=== PATIENT | female | born 1985 | race Caucasian/White ===

== ENCOUNTER 2024-01-25 10:30 | Outpatient (RCR) | payer BC, SELFPAY ==
[2024-01-25] VITALS (11 sets, daily range): BP systolic 125–144; BP diastolic 57–92; PULSE 90–115; RESP 14–18; TEMP 35.8–37.1; O2SAT 98–100
--- NOTE | 2024-01-25 15:50 | ONC.NURNOTE ---
Pt transferred to [facility] for 2nd unit of packed red blood cells. Pt tolerated 1st unit of blood without difficulty.
--- NOTE | 2024-01-25 18:17 | PC.NURSE ---
Discharge: Patient tolerated two units of blood well. Reported a little bit of headache at 30 min hazel after transfusion, patient also mentioned she had been experiencing headaches for the past few days.. IV removed, catheter intact. Patient left the floor by foot to home at 1815.
== END 2024-01-25 18:15 | disposition home or self-care (01) ==
LOC: BLOODTX 10:30
PROVIDERS: PCP Family Medicine; Visit Provider Family Medicine
DX: D50.0 Iron deficiency anemia secondary to blood loss (chronic) (principal); N92.0 Excessive and frequent menstruation with regular cycle
CPT/HCPCS: 36415; 36430; 80048; 80061; 82607; 82728; 83540; 86850; 86900; 86901; 86922; P9016

== ENCOUNTER 2024-02-12 10:37 | Outpatient (CLI) | payer BC, SELFPAY ==
--- OUTSIDE RECORDS SUMMARY | 2024-02-12 10:41 | XMS_ITS | Clinical Summary ---
Author Name Unknown Organization [employer] [facility] Address [place], [place] [address] Care Team Providers Care Php Lamp Developer Name Role Phone Clinic, No Pcp Or Primary Care Provider Unavaila ble Allergies No known active allergies Medications No known medications Active Problems No known active problems Encounters Date Type Department Care Team Description 01/25/[address] [facility] [phone] Jacob Lisa MD from Last 3 Months Social History Tobacco Use Types Packs/Day Years Used Date Smoking Tobacco: Never Smokeless Tobacco: Never Alcohol Use Standard Drinks/Week Comments No 0 (1 standard drink = 0.6 oz pur e alcohol) Sex and Gender Information Value Date Recorded Sex Assigned at Not on file Gender Identity Not on file Sexual Orientation Not on file Obstetrics History Last Filed Vital Signs Vital Sign Reading Time Taken Comments Blood Pressure 125/86 05/19/2015 11:01 AM CDT Pulse 105 05/19/2015 11:01 AM CDT Temperature - - Respiratory Rate - - Oxygen Saturation - - Inhaled Oxygen Concentration - - Weight 114.8 kg (253 lb) 05/19/2015 11:01 AM CDT Height 170.2 cm (5' 7.01) 05/19/2015 11:01 AM C DT Body Mass Index 39.62 05/19/2015 11:01 AM CDT Plan of Treatment Health Maintenance Due Date Last Done Comments Tdap 1996 Depression screening for age 12+ 1997 HIV for age 15-65 2000 BMI (ht and wt on same day) for age 18+ 2003 Hepatitis C screening for age 18-79 2003 Tetanus booster 2005 COVID-19 vaccine series (2022-24 season) 2023 Influenza for age 9-49 06/08/2024 Pap test for age 21-65 01/24/2027 , 01/25/2024, 11/29/2016, Additional history exists Pneumococcal series for age 6-64 Aged Out No longer eligible based on patient's age to complete this topic Procedures Procedure Name Priority Date/Time Associated Diagnosis Comments LAB TRACKING EVENT Routine 01/25/2024 9: 30 AM CDT COMMUNICATION SPECIALIST THIN PREP PAP SCREEN IMAGED Routine 01/25/2024 9:30 AM CDT HPV THIN PREP Routine 01/25/2024 9:30 AM CDT from Last 3 Months Results * LAB TRACKING EVENT (01/25/2024 9:30 AM CDT) Other (Other) Client Collect / Unknown 01/25/2024 9:30 AM CDT 01/25/2024 3:56 PM CDT Jacob Lisa MD LAB BILL ONLY [facility] LAB[facility] [address] [place] [address], * (ABNORMAL) COMMUNICATION SPECIALIST THIN PREP PAP SCREEN IMAGED (01/25/2024 9:30 AM CDT) Case Report Gynecologic Cytology Report ? Case: [id number] ? Authorizing Provider: ??Jacob Lisa MD ??Collected: ? 01/25/2024 0930 ? Ordering Location: ? [facility] ?Received: ?01/28/2024 0904 ? First Screen: ?Mehnaz Riojas ? Pathologist: ? Sharita Tatum ? MD Belle ? Specimen: ?COMMUNICATION SPECIALIST ThinPrep Vial Screening, Cervical/Vagina l ? 02/11/2024 11:57 AM T [facility] [employer] [facility]- ENTRAL LABORATORY INTERPRETATION/ RESULT ATYPICAL SQUAMOUS CELLS OF UNDETERMINED SIGNIFICANCE (ASCUS)(A) (none) 02/11/2024 11:57 AM [facility] [employer] [facility] ENTRAL LABORATORY IMEN ADEQUACY Satisfactory for evaluation Endocervical component present 02/11/2024 11:57 AM CDT [facility] [employer] LABORATORY-C ENTRAL LABORATORY HPV REQUEST HPV and PAP 02/11/2024 11:57 AM CDT [facility] [employer] LABORATORY-C ENTRAL LABORATORY Last Pap Date 11/29/2016 02/11/2024 11:57 AM CDT [facility] [employer] LABORATORY-C ENTRAL LABORATORY Last Pap Result NIL 11:57 AM CDT [facility] [employer] LABORATORY- ENTRAL LABORATORY Menstrual Status Regular Periods 02/11/2024 11:57 AM CDT [facility] ENTRAK LABORATORY [place] Bx Done Today No 02/11/2024 11:57 AM CDT [facility] Additional Information 02/11/2024 11:57 AM CDT [facility]TRAK LABORAT[facility] Comment: Interpreted at [facility] [place] [facility] - [address] [facility] [address], [place] [address] Automated Review Successful 02/11/2024 11:57 AM CDT [facility] Comment:Specimen processed s uccessfully by automated engine builder device, ThinPrep Imaging System, [employer] ANCILLARY TESTING COMMUNICATION SPECIALIST HPV Ordered, Please see separate report 02/11/2024 11:57 AM CDT [facility] Note The pap test is a screening technique, not a diagnostic procedure. It is used primarily to screen for squamous cancers and precursor lesions. Published studies have shown that it is subject to both false negative and false positive results. The pap test should not be used as the sole means to diagnose or exclude pre-malignant and malignant lesions. 02/11/2024 11:57 AM CDT [facility] Other (Cervical/Vagina l) 01/25/2024 9:30 AM CDT 01/28/2024 9:04 AM CDT Jacob Lisa MD PATHOLOGY/[facility]O [facility] [address] [place] [address], * HPV HIGH RISK (01/25/2024 9:30 AM CDT) TYPE 16 Negative Negative 01/29/2024 4:31 PM CDT [facility] TRAL LABORATORY TYPE 18 Negative Negative 01/29/2024 4:31 PM CDT [facility] TRAL LABORATORY OTHER HIGH RISK TYPES Negative Negative 01/29/2024 4:31 PM CDT [facility] TRAL LABORATORY Other (Cervical/Vagina l) 01/25/2024 9:30 AM CDT 01/28/2024 9:04 AM CDT Narrative [facility] - 01/29/2024 4:31 PM CDT HPV types 16, 18, 31, 33, 35, 39, 45, 51, 52, 56, 58, 59, 66 and 68 DNA were undetectable or below the pre-set threshold. Methodology: [employer] Marti 4800 HPV Test Jacob Lisa MD MICROBIOLOGY [facility] [address] [place] [address], from Last 3 Months Care Teams Php Lamp Developer Relationship Specialty Start Date End Date Clinic, No Pcp Or . PCP - General 05/19/15
== END 2024-02-12 10:38 | disposition home or self-care (01) ==
LOC: NFLDREF 10:38
PROVIDERS: PCP Family Medicine; Visit Provider Physician Assistant
DX: N92.0 Excessive and frequent menstruation with regular cycle (principal); Z13.29 Encounter for screening for other suspected endocrine disorder
CPT/HCPCS: 84443

== ENCOUNTER 2024-02-20 13:41 | Outpatient (CLI) | payer BC, SELFPAY ==
--- OUTSIDE RECORDS SUMMARY | 2024-02-20 13:43 | XMS_ITS | Clinical Summary ---
Author Name Unknown Organization [employer] [facility] Address [place], [place] [address] Care Team Providers Care End Finder Forming Department Name Role Phone Clinic, No Pcp Or Primary Care Provider Unavaila ble Allergies No known active allergies Medications No known medications Active Problems No known active problems Encounters Date Type Department Care Team Description 02/13/2024 Lab Requisition [facility] [phone] Corry Sanon PA-C 01/25/2024 Lab Requisition [facility] [phone] Jacob Lisa MD from Last 3 Months [...] 2003 Tetanus booster 2005 COVID-19 vaccine series ( season) 2023 Influenza for age 9-49 06/08/2024 Pap test for age 21-65 01/24/2027 4, 01/25/2024, 11/29/2016, Additional history exists Pneumococcal series for age 6-64 Aged Out No longer eligible based on patient's age to complete this topic Procedures Procedure Name Priority Date/Time Associated Diagnosis Comments LAB TRACKING EVENT Routine 02/12/2024 11 :00 AM CDT PATH TISSUE EXAM Routine 02/12/2024 11:0 0 AM CDT LAB TRACKING EVENT Routine 01/25/2024 9: 30 AM CDT MERCHANDISE FLOW ASSOCIATE THIN PREP PAP SCREEN IMAGED Routine 01/25/2024 9:30 AM CDT HPV THIN PREP Routine 01/25/2024 9:30 AM CDT from Last 3 Months Results * LAB TRACKING EVENT (02/12/2024 11:00 AM CDT) Only the most recent of2 resultswithin the time period is included. Other (Other) Client Collect / Unknown 02/12/2024 11:00 AM CDT 02/13/2024 3:43 PM CDT Corry Sanon PA-C LAB BILL ONLY [facility]-CENTRAL LABORATORY [address] [place] [address], * PATH TISSUE EXAM (02/12/2024 11:00 AM CDT) Case Report Pathology Report ?Case: [id number] ? Authorizing Provider: ??Corry Sanon PA-C ?Collected: ? 02/12/2024 1100 ? Ordering Location: ? [facility] ?Received: ?02/13/2024 1823 ? Pathologist: ? Jacob De Jesus MD ? Specimen: ?Endometrial Biopsy ? 02/18/2024 1:42 PM CDT [facility]- ENTRAL LABORATORY Final Diagnosis A) ENDOMETRIUM, BIOPSY: 1. Focal complex hyperplasia without atypia involving possible polyp, see comment 2. Background disordered proliferative endometrium 3. Negative for atypia and malignancy 02/18/2024 1:42 PM CDT [facility] ENTRAL LABORAT[facility] Comment A) The specimen shows a focus of non-atypical complex hyperplasia in a fragment of suspected endometrial polyp. No hyperplasia or atypia is present in the apparent background endometrium. The significance of such a finding is unclear. Ensuring complete removal of the polyp (which may require follow-up endometrial curettage, as clinically indicated) is advised. Case seen in consultation with Dr. Becerra. 02/18/2024 1:42 PM CDT [facility] LAB[facility] Clinical Information Menorrhagia 02/18/2024 1:42 PM CDT [employer] [facility] ENTRAL LABORATORY Gross Description A) Received in formalin, labeled with the patient's name and endometrial, is a 3.5 x 3.0 x 0.2 cm aggregate of pink-pinto mucosa admixed with clotted blood and mucous. The specimen is entirely submitted in 1 cassette. TMO 02/13/2024 02/18/2024 1:42 PM CDT [facility]- ENTRPA LABORATORY Microscopic Description The final diagnosis is based on microscopic examination of appropriate sections of all specimens. 02/18/2024 1:42 PM CDT [facility] ENTRAL LAB[facility]ATORY Additional Information Interpreted at [facility] Laboratory - [address] [place] [id number] 02/18/2024 1:42 PM CDT [facility] Other (Endometrial Biopsy) 02/12/2024 11:00 AM CDT 02/13/2024 6:23 PM CDT Corry Sanon PA-C PATHOLOGY/CYTOLOGY [facility] LAB[facility] [address] [place] [address], * (ABNORMAL) MERCHANDISE FLOW ASSOCIATE THIN PREP PAP SCREEN IMAGED (01/25/2024 9:30 AM CDT) Case Report Gynecologic Cytology Report ? Case: [id number] ? Authorizing Provider: ??Jacob Lisa MD ??Collected: ? 01/25/2024 0930 ? Ordering Location: ? [facility] ?Received: ?01/28/2024 0904 ? First Screen: ?Mehnaz Riojas ? Pathologist: ? Sharita Tatum ? MD Belle ? Specimen: ?MERCHANDISE FLOW ASSOCIATE ThinPrep Vial Screening, Cervical/Vagina l ? 02/11/2024 11:57 AM CDT [facility] [employer] [facility] ENTRAL LABORATORY INTERPRETATION/ RESULT ATYPICAL SQUAMOUS CELLS OF UNDETERMINED SIGNIFICANCE (ASCUS)(A) (none) 02/11/2024 11:57 AM CDT [facility] [employer] [facility] ENTRAL LABORATORY IMEN ADEQUACY Satisfactory for evaluation Endocervical component present 02/11/2024 11:57 AM CDT [facility] [employer] LABORATORY- ENTRAL LABORATORY HPV REQUEST HPV and PAP 02/11/2024 11:57 AM CDT [facility] LABORAT[facility]-C ENTRAL LABORATORY Last Pap Date 11/29/2016 02/11/2024 11:57 AM CDT [facility] LABOR[facility]-C ENTRAL LABORATORY Last Pap Result NIL 11:57 AM CDT [facility] [employer] [facility] ENTRAL LABORATORY Menstrual Status Regular Periods 02/11/2024 11:57 AM CDT [facility] [employer] [facility] ENTRAL LABORATORY [place] Bx Done Today No 02/11/2024 11:57 AM CDT [facility] ENTRAL LABORATORY Additional Information 02/11/2024 11:57 AM CDT [facility] Comment: Interpreted at [facility] Laboratory - [address] [facility] [address], [place] [address] Automated Review Successful 02/11/2024 11:57 AM CDT [facility] Comment:Specimen processed s uccessfully by automated s3b multi sensor operator device, ThinPrep Imaging System, [employer] ANCILLARY TESTING MERCHANDISE FLOW ASSOCIATE HPV Ordered, Please see separate report 02/11/2024 11:57 AM CDT [facility] Note The pap test is a [...] and malignant lesions. 02/11/2024 11:57 AM CDT [facility] Other (Cervical/Vagina l) 01/25/2024 9:30 AM CDT 01/28/2024 9:04 AM CDT Jacob Lisa MD PATHOLOGY/CYTOLO [facility] [address] [place] [address], * HPV HIGH RISK (01/25/2024 9:30 AM CDT) TYPE 16 Negative Negative 01/29/2024 4:31 PM CDT [facility] TRAL LABORATORY TYPE 18 Negative Negative 01/29/2024 4:31 PM CDT [facility] TRAL LABORATORY OTHER HIGH RISK TYPES Negative Negative 01/29/2024 4:31 PM CDT [facility] TRAL LABORATORY Other (Cervical/Vagina l) 01/25/2024 9:30 AM CDT 01/28/2024 9:04 AM CDT Narrative [facility] LABOR[facility]ORY - 01/29/2024 4:31 PM CDT HPV types 16, 18, 31, 33, 35, 39, 45, 51, 52, 56, 58, 59, 66 and 68 DNA were undetectable or below the pre-set threshold. Methodology: [employer] 4800 HPV Test Jacob Lisa MD MICROBIOLOGY [facility] LABORATORY-CENTRAL LABORATORY [address] [place] [address], from Last 3 Months Care Teams End Finder Forming Department Relationship Specialty Start Date End Date Clinic, No Pcp Or . PCP - General 05/19/15
--- NOTE | 2024-02-20 14:00 | US_ITS ---
Patient: JOSE BARRETT Facility:?[facility] Patient ID:?[id number] Site Patient ID:?[id number]. Site :?[id number] Study:?US-Pelvis -02/20/2024 2:35:10 PM Ordering Physician:Rashid January Final Report: INDICATION: excessive and frequent menstruation with regular menses COMPARISON: none TECHNIQUE: 2D inman scale and color Doppler images were acquired of the pelvis using a transabdominal and transvaginal approach. FINDINGS: Sonographic images demonstrate a normal size and smooth outer contour of the uterus. Uterus measures 10.3 cm in length by 6.6 cm in AP diameter by 6.9 cm in transverse dimension. The myometrium has a heterogeneous echotexture. The endometrial lining measures 6 mm in composite thickness. IUD is present within the lower uterine segment. Cervical nabothian cysts are present. The right ovary measures 2.3 x 2.4 x 2.3 cm in size and the left ovary measures 3.9 x 2.6 x 2.7 cm. The ovaries demonstrate normal arterial and venous blood flow on color Doppler analysis. There are no suspicious fluid collections within the cul-de-sac. Simple cyst left ovary measures 3.6 x 2.1 x 2.3 cm. IMPRESSION: IUD is present within the lower uterine segment. Heterogeneous uterine echotexture without focal leiomyoma. Simple left ovarian cyst measures 3.6 cm. Dictated by Jacob Williamson MD @ 02/21/2024 12:37:40 PM Signed by:?Jacob Williamson MD @02/21/2024 12:37:40 PM (Electronic Signature)
== END 2024-02-20 13:42 | disposition home or self-care (01) ==
LOC: US 13:41
PROVIDERS: PCP Family Medicine; Visit Provider Physician Assistant
DX: N92.0 Excessive and frequent menstruation with regular cycle (principal); N83.202 Unspecified ovarian cyst, left side
CPT/HCPCS: 76830; 76856

== ENCOUNTER 2024-03-07 16:01 | Outpatient (CLI) | payer BC, SELFPAY ==
--- OUTSIDE RECORDS SUMMARY | 2024-03-07 16:03 | XMS_ITS | Clinical Summary ---
Author Organization [employer] [facility] Address [place], [place] [address] Care Team Providers Care Rn Ed Name Role Phone Clinic, No Pcp Or Primary Care Provider Unavaila ble Allergies No known active allergies Medications No known medications Active Problems No known active problems Encounters Date Type Department Care Team Description 02/13/2024 Lab Requisition [facility] [phone] Corry Sanon PA-C 01/25/2024 Lab Requisition [facility] [phone] Jacob Lisa MD from Last 3 Months [...] EVENT Routine 01/25/2024 9: 30 AM CDT GEOSPATIAL ANALYST THIN PREP PAP SCREEN IMAGED Routine 01/25/2024 9:30 AM CDT HPV THIN PREP Routine 01/25/2024 9:30 AM CDT from Last 3 Months Results * LAB TRACKING EVENT (02/12/2024 11:00 AM CDT) Only the most recent of2 resultswithin the time period is included. Other (Other) Client Collect / Unknown 02/12/2024 11:00 AM CDT 02/13/2024 3:43 PM CDT Corry Sanon PA-C LAB BILL ONLY [facility]-CENTRAL LABORATORY [address] [place] [address], * PATH TISSUE EXAM (02/12/2024 11:00 AM CDT) Case Report Pathology Report ?Case: [id number] ? Authorizing Provider: ??Corry Sanon PA-C ?Collected: ? 02/12/2024 1100 ? Ordering Location: ? [facility] ?Received: ?02/13/2024 1823 ? Pathologist: ? Jacob De Jesus MD ? Specimen: ?Endometrial Biopsy ? 02/18/2024 1:42 PM CDT [facility]- ENTRAL LABORATORY Final Diagnosis A) ENDOMETRIUM, BIOPSY: 1. Focal complex hyperplasia without atypia involving possible polyp, see comment 2. Background disordered proliferative endometrium 3. Negative for atypia and malignancy 02/18/2024 1:42 PM CDT [employer] [facility]- ENTRAL LABORATORY Comment A) The specimen shows [...] with Dr. Becerra. 02/18/2024 1:42 PM CDT [facility] ENTRAL LABORATORY Clinical Information Menorrhagia 02/18/2024 1:42 PM CDT [employer] [facility] Gross Description A) Received in formalin, labeled with the patient's name and endometrial, is a 3.5 x 3.0 x 0.2 cm aggregate of pink-pinto mucosa admixed with clotted blood and mucous. The specimen is entirely submitted in 1 cassette. O 02/13/2024 02/18/2024 1:42 PM CDT [facility] Microscopic Description The final diagnosis is based on microscopic examination of appropriate sections of all specimens. 02/18/2024 1:42 PM CDT [facility] Additional Information Interpreted at [facility] Laboratory - [address] [place] [id number] 02/18/2024 1:42 PM CDT [facility] Other (Endometrial Biopsy) 02/12/2024 11:00 AM CDT 02/13/2024 6:23 PM CDT Corry Sanon PA-C PATHOLOGY/CYTOLOGY [facility] [address] [place] [address], * (ABNORMAL) GEOSPATIAL ANALYST THIN PREP PAP SCREEN IMAGED (01/25/2024 9:30 AM CDT) Case Report Gynecologic Cytology Report ? Case: [id number] ? Authorizing Provider: ??Jacob Lisa MD ??Collected: ? 01/25/2024 0930 ? Ordering Location: ? [facility] ?Received: ?01/28/2024 0904 ? First Screen: ?Mehnaz Riojas ? Pathologist: ? Sharita Tatum ? MD Belle ? Specimen: ?GEOSPATIAL ANALYST ThinPrep Vial Screening, Cervical/Vagina l ? 02/11/2024 11:57 AM CDT [facility]ORAT[facility]- ENTRAL LABORATORY INTERPRETATION/ RESULT ATYPICAL SQUAMOUS CELLS OF UNDETERMINED SIGNIFICANCE (ASCUS)(A) (none) 02/11/2024 11:57 AM CDT [facility] ENTRAL LABORATORY IMEN ADEQUACY Satisfactory for evaluation Endocervical component present 02/11/2024 11:57 AM CDT [facility]- ENTRAL LABORATORY HPV REQUEST HPV and PAP 02/11/2024 11:57 AM CDT [facility]-C ENTRAL LABORATORY Last Pap Date 11/29/2016 02/11/2024 11:57 AM CDT [facility]-C ENTRAL LABORATORY Last Pap Result NIL 11:57 AM CDT [facility] LABORAT[facility]-C ENTRAL LABORATORY Menstrual Status Regular Periods 02/11/2024 11:57 AM CDT [facility] LABOR[facility]-C ENTRAL LABORATORY [place] Bx Done Today No 02/11/2024 11:57 AM CDT [facility]- ENTRAL LABORATORY Additional Information 02/11/2024 11:57 AM CDT [facility] ENTRAL LABORATORY Comment: Interpreted at [facility] Laboratory - [address] [facility] [address], [place] [address] Automated Review Successful 02/11/2024 11:57 AM CDT [facility] Comment:Specimen processed s uccessfully by automated rewinder device, ThinPrep Imaging System, [employer] ANCILLARY TESTING GEOSPATIAL ANALYST HPV Ordered, Please see separate report 02/11/2024 11:57 AM CDT [facility] Note The pap test is [...] and malignant lesions. 02/11/2024 11:57 AM CDT [facility] Other (Cervical/Vagina l) 01/25/2024 9:30 AM CDT 01/28/2024 9:04 AM CDT Jacob Lisa MD PATHOLOGY/CYTOLO [facility]Y [facility] [address] [place] [address], * HPV HIGH RISK (01/25/2024 9:30 AM CDT) TYPE 16 Negative Negative 01/29/2024 4:31 PM CDT [facility] TRAL LABORATORY TYPE 18 Negative Negative 01/29/2024 4:31 PM CDT [facility] TRAL LABORATORY OTHER HIGH RISK TYPES Negative Negative 01/29/2024 4:31 PM CDT [facility] TRAL LABORATORY Other (Cervical/Vagina l) 01/25/2024 9:30 AM CDT 01/28/2024 9:04 AM CDT Narrative [facility] LABORATORY - 01/29/2024 4:31 PM CDT HPV types 16, 18, 31, 33, 35, 39, 45, 51, 52, 56, 58, 59, 66 and 68 DNA were undetectable or below the pre-set threshold. Methodology: Polina [employer]i 4800 HPV Test Jacob Lisa MD MICROBIOLOGY [facility] LABOR[facility]-CENTRAL LABORATORY [address] [place] [address], from Last 3 Months Care Teams Rn Ed Relationship Specialty Start Date End Date Clinic, No Pcp Or . PCP - General 05/19/15
== END 2024-03-07 16:02 | disposition home or self-care (01) ==
LOC: NFLDREF 16:01
PROVIDERS: PCP Family Medicine; Visit Provider Family Medicine
DX: Z01.818 Encounter for other preprocedural examination (principal); D50.9 Iron deficiency anemia, unspecified
CPT/HCPCS: 82728

== ENCOUNTER 2024-03-27 07:38 | Day surgery (SDC) | payer BC, SELFPAY ==
--- OUTSIDE RECORDS SUMMARY | 2024-03-27 07:41 | XMS_ITS | Clinical Summary ---
Author Organization [facility] Address [place], [place] [address] Care Team Providers Care Road Cleaner Name Role Phone Clinic, No Pcp Or Primary Care Provider Unavaila ble Allergies No known active allergies Medications No known medications Active Problems No known active problems Encounters Date Type Department Care Team Description 02/13/2024 Lab Requisition [facility] [phone] Corry Sanon PA-C 01/25/2024 Lab Requisition [facility] [phone] Jacob Lisa MD from Last 3 Months [...] EVENT Routine 01/25/2024 9: 30 AM CDT OFFICE HELPER CLERICAL THIN PREP PAP SCREEN IMAGED Routine 01/25/2024 9:30 AM CDT HPV THIN PREP Routine 01/25/2024 9:30 AM CDT from Last 3 Months Results * LAB TRACKING EVENT (02/12/2024 11:00 AM CDT) Only the most recent of2 resultswithin the time period is included. Other (Other) Client Collect / Unknown 02/12/2024 11:00 AM CDT 02/13/2024 3:43 PM CDT Corry Sanon PA-C LAB BILL ONLY [facility] [address] [place] [address], * PATH TISSUE EXAM (02/12/2024 11:00 AM CDT) Case Report Pathology Report ?Case: [id number] ? Authorizing Provider: ??Corry Sanon PA-C ?Collected: ? 02/12/2024 1100 ? Ordering Location: ? [facility] ?Received: ?02/13/2024 1823 ? Pathologist: ? Jacob De Jesus MD ? Specimen: ?Endometrial Biopsy ? 02/18/2024 1:42 PM CDT [facility] ENTRAL LAB[facility]AT[facility] Final Diagnosis A) ENDOMETRIUM, BIOPSY: 1. Focal complex hyperplasia without atypia involving possible polyp, see comment 2. Background disordered proliferative endometrium 3. Negative for atypia and malignancy 02/18/2024 1:42 PM CDT amiando [facility]- ENTR[facility] LABORATORY Comment A) The specimen shows [...] with Dr. Becerra. 02/18/2024 1:42 PM CDT [facility] Clinical Information Menorrhagia 02/18/2024 1:42 PM CDT [facility] Gross Description A) Received in formalin, labeled with the patient's name and endometrial, is a 3.5 x 3.0 x 0.2 cm aggregate of pink-pinto mucosa admixed with clotted blood and mucous. The specimen is entirely submitted in 1 cassette. O 02/13/2024 02/18/2024 1:42 PM CDT [facility] Microscopic Description The final diagnosis is based on microscopic examination of appropriate sections of all specimens. 02/18/2024 1:42 PM CDT [facility] Additional Information Interpreted at [facility], Central Laboratory - [address] [place] [id number] 02/18/2024 1:42 PM CDT [facility] Other (Endometrial Biopsy) 02/12/2024 11:00 AM CDT 02/13/2024 6:23 PM CDT Corry Sanon PA-C PATHOLOGY/CYTOLOGY [facility] [address] [place] [address], * (ABNORMAL) OFFICE HELPER CLERICAL THIN PREP PAP SCREEN IMAGED (01/25/2024 9:30 AM CDT) Case Report Gynecologic Cytology Report ? Case: [id number] ? Authorizing Provider: ??Jacob Lisa MD ??Collected: ? 01/25/2024 0930 ? Ordering Location: ? [facility] ?Received: ?01/28/2024 0904 ? First Screen: ?Mehnaz Riojas ? Pathologist: ? Sharita Tatum ? MD Belle ? Specimen: ?OFFICE HELPER CLERICAL ThinPrep Vial Screening, Cervical/Vagina l ? 02/11/2024 11:57 AM CDT [facility] LABORATORY- ENTRAL LABORATORY INTERPRETATION/ RESULT ATYPICAL SQUAMOUS CELLS OF UNDETERMINED SIGNIFICANCE (ASCUS)(A) (none) 02/11/2024 11:57 AM CDT [facility] ENTRAL LABORATORY IMEN ADEQUACY Satisfactory for evaluation Endocervical component present 02/11/2024 11:57 AM CDT [facility] LAB[facility]AT[facility] HPV REQUEST HPV and PAP 02/11/2024 11:57 AM CDT [facility] Last Pap Date 11/29/2016 02/11/2024 11:57 AM CDT [facility] Last Pap Result NIL 11:57 AM CDT [facility] [employer] [facility] LABORATORY-C ENTRAL LABORATORY Menstrual Status Regular Periods 02/11/2024 11:57 AM CDT [facility] EN[facility]AL LABORATORY Cornelia Bx Done Today No 02/11/2024 11:57 AM CDT [facility]- EN[facility]AL LABORATORY Additional Information 02/11/2024 11:57 AM CDT [facility] EN[facility] Comment: Interpreted at [facility] - [address] [facility] [address], [place] [address] Automated Review Successful 02/11/2024 11:57 AM CDT [facility] Comment:Specimen processed s uccessfully by automated accounts specialist device, ThinPrep Imaging System, [employer] ANCILLARY TESTING OFFICE HELPER CLERICAL HPV Ordered, Please see separate report 02/11/2024 11:57 AM CDT [facility] Note The pap test is a [...] and malignant lesions. 02/11/2024 11:57 AM CDT [facility] Other (Cervical/Vagina l) 01/25/2024 9:30 AM CDT 01/28/2024 9:04 AM CDT Jacob Lisa MD PATHOLOGY/CYTOLO GY [facility] [address] [place] [address], * HPV HIGH RISK (01/25/2024 9:30 AM CDT) TYPE 16 Negative Negative 01/29/2024 4:31 PM CDT [facility] LABORAT[facility] TYPE 18 Negative Negative 01/29/2024 4:31 PM CDT [facility] OTHER HIGH RISK TYPES Negative Negative 01/29/2024 4:31 PM CDT [facility] Other (Cervical/Vagina l) 01/25/2024 9:30 AM CDT 01/28/2024 9:04 AM CDT Narrative [facility] - 01/29/2024 4:31 PM CDT HPV types 16, 18, 31, 33, 35, 39, 45, 51, 52, 56, 58, 59, 66 and 68 DNA were undetectable or below the pre-set threshold. Methodology: Polina Marti 4800 HPV Test Jacob Lisa MD MICROBIOLOGY [facility] [address] [place] [address], from Last 3 Mon[address] Care Teams [address] Cleaner Relationship Specialty Start Date End Date Clinic, No Pcp Or . PCP - General 05/19/15
[2024-03-27 08:13] VITALS: BMI 36.9
[2024-03-27 08:38] VITALS: BP 125/70; PULSE 86; RESP 16; TEMP 36.4; O2SAT 96
[2024-03-27] MEDS: LACTATED RINGERS 1000 ML 1,000 ML 100 ML IV (08:39)
[2024-03-27] MEDS: SODIUM CHLORIDE 0.9 % (FLUSH) 10 ML SYRINGE IVF (08:40)
[2024-03-27 08:45] LABS: Basophils Absolute Auto 0.01 K/uL (0.00-0.30); Basophils Percent Auto 0.2 % (0.0-3.0); Eosinophils Absolute Auto 0.04 K/uL (0.00-0.50); Eosinophils Percent Auto 0.7 % (0.0-7.0); Hematocrit 34.1 % (33.0-51.0); Hemoglobin* 10.7 gm/dL (12.0-16.0); Lymphocytes Absolute Auto 1.95 K/uL (0.90-2.90); Lymphocytes Percent Auto 34.7 % (20-44); Mean Corpuscular HGB Conc 31 gm/dL (32-36); Mean Corpuscular Hemoglobin 29 pg (26-34); Mean Corpuscular Volume 91 fL (80-100); Monocytes Percent Auto 7.1 % (0.0-11.0); Neutrophils Absolute Auto 3.22 K/uL (1.7-7.0); Neutrophils Percent Auto 57.3 % (42.0-72.0); Platelet Count* 351 K/uL (140-440); RDW Coefficient of Variation % 22.9 % (11.5-15.5); Red Blood Count 3.73 m/uL (4.00-5.20); White Blood Count* 5.62 K/uL (4.50-11.00)
[2024-03-27 08:46] LABS: Slide Review Reflex No
--- NOTE | 2024-03-27 09:03 | W.PM.H&PU ---
History & Physical Update History & Physical Update H&P Updates: Patient had one of the heavier menstrual cycles she had in a long time starting last Sunday. She passed a lot of clots with painful cramping. Currently only spotting. Hgb is rising appropriately s/p iron infusion at 10.7 gm/dL.
[2024-03-27 09:16] LABS: HCG Qualitative Serum* Negative (Negative)
--- NOTE | 2024-03-27 10:41 | W.ANESCHARGE ---
Anesthesia Charges Start Date/Time Anesthesia Start Date: 03/27/24 Anesthesia Start Time: 10:27 Stop Date/Time Anesthesia Stop Date: 03/27/24
--- NOTE | 2024-03-27 11:05 | CRLHL7_ITS ---
For Patients: As a result of the Cures Act, medical imaging exams and procedure reports are released immediately into your electronic medical record. You may view this report before your referring provider. If you have questions, please contact your health care provider. INDICATION: INTRA OP IUD CHECK. (Sic) COMPARISON: None available. TECHNIQUE: One view of the abdomen (2 images) FINDINGS: No IUD is identified. Right upper quadrant cholecystectomy clips are noted incidentally. No significant incidental findings. IMPRESSION: No IUD is identified. Dictated by Brant Thomas MD @ 03/27/2024 12:19:38 PM (Electronically Signed)
--- NOTE | 2024-03-27 11:17 | SUR.OPER ---
x-ray obtained, unable to visual MD DALTON in room-reviewed the x-rays
[2024-03-27 11:42] VITALS: BP 96/45; PULSE 87; RESP 16; TEMP 36.3; O2SAT 95
[2024-03-27] MEDS: SILVER NITRATE APPLICATOR 1 EACH STICK..EA. TOPICAL (11:42)
--- NOTE | 2024-03-27 11:44 | W.PM.GYNPROC ---
Procedure Note Time Seen by Provider: 11:00 Date of procedure: 03/27/24 Will [facility] bill your pro fee for this procedure?: Yes Procedure: Preoperative diagnosis: Maribel is a 38 year-old with severe heavy menstrual bleeding and malpositioned Mirena IUD. Postoperative diagnosis: Severe heavy menstrual bleeding and lost Mirena IUD. Procedure: Hysteroscopy, Dilation and Curettage using the Truclear incisor, Mirena IUD insertion, intraoperative KUB x-ray for loss Mirena IUD. Anesthesia: Conscious sedation, paracervical block. Surgeon: Teresa Hayes MD Emu Farmer: None Estimated blood loss: 5 mL IVF: 700 cc UOP: 320 cc Specimen: Endometrial curettings to pathology. Findings: Exam under anesthesia: Uterus: anterverted position, less than 6 week sized, mobile, with no masses or nodularity palpable. Uterus sounded to 7.5 cm. No adnexal masses or nodularity palpable. Cervix normal appearing without IUD string protruding from cervical os. On hysteroscopy: Extremely heterogenous endometrial lining with increased vascularity. No discreet polyp or masses. Uterine cavity appeared cribriform throughout the fundus. Dilated bilateral tubal ostia. No retained IUD on hysteroscopy. KUB without evidence of retained IUD. Procedure: Maribel was taken to the operating operating room more conscious sedation was found to be adequate. The patient was placed on in the dorsal lithotomy position and an exam under anesthesia was performed with findings stated above. She was then prepped and draped in a normal sterile manner. A bivalve speculum was placed in the vagina. The cervix appears multiparous without expected IUD strings. Otherwise no abnormalities. The paracervical block was placed using 1% lidocaine with epi, 5 mL was injected at the 4 and 8 o'clock positions on the cervix. The anterior lip of the cervix was grasped with a tenaculum clamp. The cervix dilated to Hegar 6. The uterus sounded to 7.5 cm. The Truclear hysteroscope was advanced into the uterus. A diagnostic hysteroscopy was performed with normal saline as the insufflation medium. Findings are stated above. The Truclear incisor was then advanced through the camera. The global curettage was performed with the incisor. The incisor was then removed. One sweep with a sharp curette was performed. Hysteroscope reinserted. The endometrial cavity appeared normal. Saline deficit at the end of the procedure 950 mL. Total saline used 7345 mL. The hysteroscope, tenaculum clamp and speculum were removed from the vaginal canal. KUB performed intraoperative without evidence of retained Mirena IUD. Attention was then turned towards Mirena IUD insertion. Speculum inserted. Cervix visualized. The IUD is loaded into the insertion tube, inserted to the sounded depth, and the IUD is deployed. Insertion tube was removed. Strings are trimmed to 3 cm. There were no complications with insertion. Tenaculum removed. Silver nitrate was used for hemostasis at tenaculum sites. The patient tolerated the procedure well. Sponge, lap and instrument counts were correct x2 at the end of the procedure. The patient was taken to the recovery area in stable condition. Surgical debrief and specimen review performed: 1. Endometrial curetting Discussed with patient that her previous IUD was likely expelled with her last menstrual cycle.
[2024-03-27 11:45] VITALS: BP 111/79; PULSE 76; RESP 16; O2SAT 76
--- NOTE | 2024-03-27 11:47 | W.ANESCHARGE ---
Anesthesia Charges Start Date/Time Anesthesia Start Date: 03/27/24 Anesthesia Start Time: 10:27 Stop Date/Time Anesthesia Stop Date: 03/27/24 Anesthesia Stop Time: 11:43
[2024-03-27 12:00] VITALS: BP 99/67; PULSE 76; RESP 16; O2SAT 76
[2024-03-27 12:15] VITALS: BP 109/70; PULSE 87; RESP 16; O2SAT 99
== END 2024-03-27 12:40 | disposition home or self-care (01) ==
LOC: OR 07:39
PROVIDERS: PCP Family Medicine; Visit Provider Obstetrics & Gynecology
PROC: 0UDB8ZZ Extraction of Endometrium, Via Natural or Artificial Opening Endoscopic (ICD-10-PCS; CPT 58558; principal; 2024-03-27 09:15)
DX: N92.0 Excessive and frequent menstruation with regular cycle (principal); T83.32XA Displacement of intrauterine contraceptive device, initial encounter
CPT/HCPCS: 58558; 58300; 00952; 36415; 74018; 81025; 84702; 84703; 85025; 86850; 86900; 86901; 88305; A9270; J1100; J1885; J2250; J2405; J2704; J3010; J7120; J7298

== ENCOUNTER 2024-05-02 10:30 | Emergency (ER) | payer BC, SELFPAY ==
[2024-05-02 10:34] VITALS: BP 145/95; PULSE 114; RESP 18; TEMP 36.6; O2SAT 98; BMI 37.1
--- NOTE | 2024-05-02 11:19 | CRLHL7_ITS ---
For Patients: As a result of the Cures Act, medical imaging exams and procedure reports are released immediately into your electronic medical record. You may view this report before your referring provider. If you have questions, please contact your health care provider. INDICATION: IUD placement COMPARISON: None. TECHNIQUE: One view pelvis. FINDINGS: No fracture. Normal hip joint alignment. Joint spaces are normal. No destructive focal bone lesions. Soft tissues are normal. No IUD seen. IMPRESSION: No IUD seen in the pelvis. Dictated by Joelle Wheatley MD @ 05/02/2024 11:49:55 AM (Electronically Signed)
--- NOTE | 2024-05-02 11:20 | ED_ITS ---
HPI - General Adult General Chief complaint: Vaginal Bleeding Stated complaint: Heavy bleeding, severe cramping Time Seen by Provider: 05/02/24 10:59 History of Present Illness HPI narrative: This 38-year-old female comes in reporting abdominal pain and cramping with vaginal bleeding now including clots. She has been having ongoing vaginal bleeding and did have an IUD in place that somehow dislodged about a month ago. At that time she had a placement of another IUD and the operating room. She had mild ongoing bleeding since then but over the past 3 days it is much more significant with increased abdominal cramping. She denies any possibility of . She does have a history of anemia secondary to vaginal bleeding but arrives with normal vital signs and states that she does not report any lightheadedness or shortness of breath. She states the IUD was placed partially to treat some polyps in her uterus that are borderline for possibility of neoplasm. Related Data Home Medications ?Medication ?Instructions ?Recorded ?Confirmed levonorgestrel 21 mcg/24 hr (up to 1 device intrauterine ONCE 02/27/24 04/11/24 8 years) 52 mg intrauterine device (Mirena) Previous Rx's ?Medication ?Instructions ?Recorded acetaminophen 500 mg tablet 1,000 mg (2 x 500 mg) PO Q6H PRN 03/27/24 Pain 14 days #30 tabs ibuprofen 600 mg tablet 600 mg PO Q6H PRN Pain 14 days #30 03/27/24 tabs medroxyprogesterone 10 mg tablet 10 mg PO TID PRN #20 tabs 05/02/24 (Provera) Allergies Allergy/AdvReac Type Severity Reaction Status Date / Time No Known Drug Allergies Allergy Verified 04/11/24 08:12 Review of Systems Status of ROS: Reports: 10 or more systems reviewed and unremarkable except as noted in History and below Narrative: Constitutional: No fevers, no weight gain or loss. Eyes: No discharge. No vision changes. HENT: No congestion, no sore throat, no ear pain. Cardiovascular: No chest pain, no palpitations. Respiratory: No shortness of breath, no wheezes, no cough. Gastrointestinal: No vomiting, no diarrhea. Abdominal pain that is more intense on the left side and into her low left lower back. Genitourinary: No dysuria, no hematuria. Musculoskeletal: Normal range of motion. Skin: No rashes, no pruritis. Neurological: No dizziness, weakness, sensory change, speech change. Endo/Heme/Allergies: No bruising or bleeding. No polydipsia. Pysch: no suicidality, no anxiety, no insomnia. All other systems reviewed and are negative. [facility] Medical History Menorrhagia ?N92.0 - Excessive and frequent menstruation with regular cycle (ICD-10) Iron deficiency anemia ?D50.9 - Iron deficiency anemia, unspecified (ICD-10) Morbid obesity with body mass index (BMI) of 40.0 or higher ?E66.01 - Morbid (severe) obesity due to excess calories (ICD-10) Generalized anxiety disorder ?F41.1 - Generalized anxiety disorder (ICD-10) Surgical History History of tonsillectomy and adenoidectomy (2002) ?Z90.89 - Acquired absence of other organs (ICD-10) History of cholecystectomy (2009) ?Z90.49 - Acquired absence of other specified parts of digestive tract (ICD- 10) Family History Mother Breast cancer, Onset Age: 52 Maternal Grandfather Diabetes Maternal Grandmother Bipolar disorder Sister Anxiety Brother Seizure disorder Unknown Pancreatic cancer Father Stroke Social History Narrative: Nonsmoker. No EtOH. Exercises 5-6 times/week with running & weights starting 04/2020. . 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 What is your current living situation?: I presently have a place to live Problems where you live: no known problems In the past 12 months, utilities in danger of being shut off: no In past 12 months, lack of transportation kept you from medical appts, meetings, work, or getting things needed for daily living: no In the past 12 mos, have been you worried that your food would run out before you had money to buy more?: never true In the past 12 mos, the food you bought just didn't last and you didn't have money to buy more?: never true Smoking Status: Never smoker How often do you have a drink containing alcohol: never How often do you have six or more drinks on one occasion: Never AUDIT-C Alcohol total score: 0 Non-prescribed substance use: denies use How often does anyone, including family, friends and others, physically hurt you : never How often does anyone, including family, friends and others, insult or talk down to you: never How often does anyone, including family, friends and others, threaten you with harm: never How often does anyone, including family, friends and others, scream or curse at you: never Little interest or pleasure in doing things: several days Feeling down, depressed, or hopeless: not at all Are you using contraception or practicing any form of control: Yes Exam Const: Vital Signs, click to edit/add: Vital Signs - 24 hr 05/02/24 10:34 Temperature 97.9 F Pulse Rate [Right Pulse Oximeter] 114 H Respiratory Rate 18 Blood Pressure [Ri ght Upper Arm] 145/95 H Pulse Oximetry 98 Course Vital Signs Vital signs: Initial Vital Signs Temperature 97.9 F 05/02/24 10:34 Temperature Source Temporal Artery Scan 05/02/24 10:34 Pulse Rate 114 H 05/02/24 10:34 Pulse Rhythm Regular 05/02/24 10:34 Pulse Strength 3+ Normal 05/02/24 10:34 Respiratory Rate 18 05/02/24 10:34 Blood Pressure 145/95 H 05/02/24 10:34 Blood Pressure Mean 111 H 05/02/24 10:34 Blood Pressure Position Sitting 05/02/24 10:34 Pulse Oximetry 98 05/02/24 10:34 Vital Signs Temperature 97.9 F 05/02/24 10:34 Pulse Rate 114 H 05/02/24 10:34 Respiratory Rate 18 05/02/24 10:34 Blood Pressure 145/95 H 05/02/24 10:34 Pulse Oximetry 98 05/02/24 10:34 Temperature 97.9 F 05/02/24 10:34 Pulse Rate 114 H 05/02/24 10:34 Respiratory Rate 18 05/02/24 10:34 Blood Pressure 145/95 H 05/02/24 10:34 Pulse Oximetry 98 05/02/24 10:34 Medical Decision Making MDM Narrative Medical decision making narrative: This patient comes in reporting abdominal cramping and vaginal bleeding with clots. She states that she has been changing her pad at most about every 2 hours. She is suspecting that her IUD has self dislodged. An x-ray is obtained and there is no evidence of IUD in the uterus. Additionally her her hemoglobin returns reassuring at 10.9. I did speak with the OBGYN physician on-call, Dr. Monique, who recommended Provera 10 mg 3 times a day for 3 days then 2 times daily for 3 days then daily for another 3 days. The patient is advised to follow-up with OBGYN clinic. Lab Data Labs: Lab Results 05/02/24 Range/Units 11:50 WBC 8.83 (4.50-11.00) K/uL RBC 3.96 L (4.00-5.20) m/uL Hgb 10.9 L (12.0-16.0) gm/dL Hct 34.8 (33.0-51.0) % MCV 88 (80-100) fL MCH 28 (26-34) pg MCHC 31 L (32-36) gm/dL RDW Coeff of Yogesh 15.9 H (11.5-15.5) % Plt Count 386 (140-440) K/uL Neut % (Auto) 70.9 (42.0-72.0) % Lymph % (Auto) 21.0 (20-44) % Cataño % (Auto) 7.2 (0.0-11.0) % Eos % (Auto) 0.5 (0.0-7.0) % Baso % (Auto) 0.3 (0.0-3.0) % Neut # (Auto) 6.26 (1.7-7.0) K/uL Lymph # (Auto) 1.85 (0.90-2.90) K/uL Cataño # (Auto) 0.60 (0.00-0.90) K/UL Eos # (Auto) 0.04 (0.00-0.50) K/uL Baso # (Auto) 0.03 (0.00-0.30) K/uL Abs Immat Gran (auto) 0.01 (0.00-0.30) K/uL Imm/Tot Granulo (auto) 0.1 % Discharge Plan Discharge Clinical Impression: Dysfunctional uterine bleeding Patient Disposition: Home, Self-Care Condition: Stable Additional Instructions: Take Provera 10 mg 3 times daily for 3 days then 2 times daily for 3 days then daily for 3 days. Call for appointment in the OBGYN clinic. Return if worsening. Prescriptions: New medroxyprogesterone [Provera] 10 mg tablet 10 mg PO TID PRNQty: 20 2RF No Action Mirena 21 mcg/24 hr (8 yrs) 52 mg intrauterine device 1 device intrauterine ONCE Rx Instructions: as a single dose acetaminophen 500 mg Tablet 1,000 mg PO Q6H PRN (Reason: Pain) 14 Days Qty: 30 0RF ibuprofen 600 mg Tablet 600 mg PO Q6H PRN (Reason: Pain) 14 Days Qty: 30 0RF Follow Up/Referrals: Jacob Lisa MD [Primary Care Provider] - Stand Alone Forms: MyHealth Info Instructions
--- OUTSIDE RECORDS SUMMARY | 2024-05-02 11:28 | XMS_ITS | Clinical Summary ---
Author Organization [employer] [facility] s & [facility] Address [place], [place] [address] Care Team Providers Care Benefits Technician Name Role Phone Clinic, No Pcp Or Primary Care Provider Unavaila ble Allergies No known active allergies Medications No known medications Active Problems No known active problems Encounters Date Type Department Care Team Description 03/27/2024 Lab Requisition [facility] [phone] Teresa Hayes MD 02/13/2024 Lab Requisition [facility] [phone] Corry Sanon PA-C from Last 3 Months Social History Tobacco [...] Associated Diagnosis Comments LAB TRACKING EVENT Routine 03/27/2024 11 :25 AM CDT PATH TISSUE EXAM Routine 03/27/2024 11:2 5 AM CDT LAB TRACKING EVENT Routine 02/12/2024 11 :00 AM CDT PATH TISSUE EXAM Routine 02/12/2024 11:0 0 AM CDT HPV THIN PREP Routine 01/25/2024 9:30 AM CDT from Last 3 Months or Most Recently Relevant to Health Maintenance Results * LAB TRACKING EVENT (03/27/2024 11:25 AM CDT) Only the most recent of2 resultswithin the time period is included. Other (Other) Client Collect / Unknown 03/27/2024 11:25 AM CDT 03/27/2024 10:01 PM CDT Teresa Hayes MD LAB BILL ONLY [facility]AL LABORATORY [address] [place] [address], * PATH TISSUE EXAM (03/27/2024 11:25 AM CDT) Only the most recent of2 resultswithin the time period is included. Case Report Pathology Report ?Case: [id number] ? Authorizing Provider: ??Teresa Hayes MD ?Collected: ? 03/27/2024 1125 ? Ordering Location: ? [facility] ?Received: ?03/28/2024 0823 ? Pathologist: ? Sourav Becerra MD ? Specimen: ?Endometrial Biopsy ? 03/31/2024 3:39 PM CDT [facility] ENTRAL LABORATORY Final Diagnosis A) ENDOMETRIUM, CURETTAGE: 1. Fragments of benign endometrial polyp(s), see COMMENT 2. Background inactive endometrium 3. Negative for atypia and malignancy 03/31/2024 3:39 PM CDT [facility]AL LABORAT[facility] Comment The prior endometrial sampling diagnostic of focal non-atypical endometrial hyperplasia involving polyp ([id number]) is reviewed in conjunction with the current case. The glandular crowding previously identified is NOT seen in the current sampling. 03/31/2024 3:39 PM CDT [facility] LAB[facility] Clinical Information Abnormal uterine bleeding, history of focal complex hyperplasia without atypia involving possible polyp ([id number], 02/12/2024); malpositioned IUD 03/31/2024 3:39 PM CDT [facility] LABORATORY Gross Description A) Received in formalin, labeled with the patient's name and endometrial curettings, is a 3.6 x 2.5 x 0.7 cm aggregate of pink-pinto mucosa admixed with clotted blood and mucous. The specimen is entirely submitted in 3 cassettes. JKT 03/28/2024 03/31/2024 3:39 PM CDT [facility] ENTRMI LABORATORY Microscopic Description The final diagnosis is based on microscopic examination of appropriate sections of all specimens. 03/31/2024 3:[address] [facility] Additional Information Interpreted at [facility] - [address] [facility] [address], [place] [address] 03/31/2024 3:39 PM CDT [facility] ENTRMI LABORATORY Other (Endometrial Biopsy) 03/27/2024 11:25 AM CDT 03/28/2024 8:23 AM CDT Teresa Hayes MD PATHOLOGY/CYTOLOGY Performing Organization Address [facility] Co de Phone Number [facility] [address] [place] [address] * HPV HIGH RISK (01/25/2024 9:30 AM CDT) TYPE 16 Negative Negative 01/29/2024 4:31 PM CDT [facility] TRAL LABORATORY TYPE 18 Negative Negative 01/29/2024 4:31 PM CDT [facility] TRAL LABORATORY OTHER HIGH RISK TYPES Negative Negative 01/29/2024 4:31 PM CDT [facility] TRA LABORATORY Other (Cervical/Vagina l) 01/25/2024 9:30 AM CDT 01/28/2024 9:04 AM CDT Narrative [facility] - 01/29/2024 4:31 PM CDT HPV types 16, 18, 31, 33, 35, 39, 45, 51, 52, 56, 58, 59, 66 and 68 DNA were undetectable or below the pre-set threshold. Methodology: Polina Marti 4800 HPV Test Jacob Lisa MD MICROBIOLOGY Performing Organization Address City/[facility]/ZIP Co de Phone Number [facility] [address] [place] [id number], from Last 3 Months or Most Recently Relevant to Health Maintenance Care Teams Benefits Technician Relationship Specialty Start Date End Date Clinic, No Pcp Or . PCP - General 05/19/15
[2024-05-02 12:01] LABS: Basophils Absolute Auto 0.03 K/uL (0.00-0.30); Basophils Percent Auto 0.3 % (0.0-3.0); Eosinophils Absolute Auto 0.04 K/uL (0.00-0.50); Eosinophils Percent Auto 0.5 % (0.0-7.0); Hematocrit 34.8 % (33.0-51.0); Hemoglobin* 10.9 gm/dL (12.0-16.0); Immature Granulocytes Abs Auto 0.01 K/uL (0.00-0.30); Immature Granulocytes Pct Auto 0.1 %; Lymphocytes Absolute Auto 1.85 K/uL (0.90-2.90); Mean Corpuscular HGB Conc 31 gm/dL (32-36); Mean Corpuscular Hemoglobin 28 pg (26-34); Mean Corpuscular Volume 88 fL (80-100); Monocytes Percent Auto 7.2 % (0.0-11.0); Neutrophils Absolute Auto 6.26 K/uL (1.7-7.0); Neutrophils Percent Auto 70.9 % (42.0-72.0); Platelet Count* 386 K/uL (140-440); RDW Coefficient of Variation % 15.9 % (11.5-15.5); Red Blood Count 3.96 m/uL (4.00-5.20); White Blood Count* 8.83 K/uL (4.50-11.00)
[2024-05-02 12:05] LABS: Slide Review Reflex No
== END 2024-05-02 12:51 | disposition home or self-care (01) ==
PROVIDERS: Emergency Provider Emergency Medicine Emergency Medical Services; PCP Family Medicine
DX: N93.8 Other specified abnormal uterine and vaginal bleeding (principal)
CPT/HCPCS: 36415; 72170; 85025; 99284

== ENCOUNTER 2024-05-20 13:34 | Outpatient (CLI) | payer BC, SELFPAY ==
--- OUTSIDE RECORDS SUMMARY | 2024-05-20 13:37 | XMS_ITS | Clinical Summary ---
Author Organization [employer] [facility] & [facility] Address [place], [place] [address] Care Team Providers Care Grain Handler Name Role Phone Clinic, No Pcp Or Primary Care Provider Unavaila ble Allergies No known active allergies Medications No known medications Active Problems No known active problems Encounters Date Type Department Care Team Description 03/27/2024 Lab Requisition [facility] [phone] Teresa Hayes MD from Last 3 Months Social History [...] EXAM Routine 03/27/2024 11:2 5 AM CDT HPV THIN PREP Routine 01/25/2024 9:30 AM CDT from Last 3 Months or Most Recently Relevant to Health Maintenance Results * LAB TRACKING EVENT (03/27/2024 11:25 AM CDT) Other (Other) Client Collect / Unknown 03/27/2024 11:25 AM CDT 03/27/2024 10:01 PM CDT Teresa Hayes MD LAB BILL ONLY [facility]-C[facility]TRAL LABORATORY [address] [place] [address], * PATH TISSUE EXAM (03/27/2024 11:25 AM CDT) Case Report Pathology Report ?Case: [id number] ? Authorizing Provider: ??Freddy, Teresa Thomson, ?Collected: ? 03/27/2024 1125 ? Ordering Location: ? [facility] ?Received: ?03/28/2024 0823 ? Pathologist: ? Sourav Becerra MD ? Specimen: ?Endometrial Biopsy ? 03/31/2024 3:39 PM T [facility] Final Diagnosis A) ENDOMETRIUM, CURETTAGE: 1. Fragments of benign endometrial polyp(s), see COMMENT 2. Background inactive endometrium 3. Negative for atypia and malignancy 03/31/2024 3:39 PM [facility] Comment The prior endometrial sampling diagnostic of focal non-atypical endometrial hyperplasia involving polyp ([id number]) is reviewed in conjunction with the current case. The glandular crowding previously identified is NOT seen in the current sampling. 03/31/2024 3:39 PM [facility] Clinical Information Abnormal uterine bleeding, history of focal complex hyperplasia without atypia involving possible polyp ([id number], 02/12/2024); malpositioned IUD 03/31/2024 3:39 PM T [facility] Gross Description A) Received in formalin, labeled with the patient's name and endometrial curettings, is a 3.6 x 2.5 x 0.7 cm aggregate of pink-pinto mucosa admixed with clotted blood and mucous. The specimen is entirely submitted in 3 cassettes. JKT 03/28/2024 03/31/2024 3:39 PM T [facility] Microscopic Description The final diagnosis is based on microscopic examination of appropriate sections of all specimens. 03/31/2024 3:39 PM T [facility] Additional Information Interpreted at [facility] - [address], [place] [address] 03/31/2024 3:39 PM CDT [facility]- ENTRAL LABORATORY Other (Endometrial Biopsy) 03/27/2024 11:25 AM CDT 03/28/2024 8:23 AM CDT Teresa Hayes MD PATHOLOGY/CYTOLOGY Performing Organization Address City/[facility]/ZIP Co de Phone Number [facility] [address] [place] [phone], * HPV HIGH RISK (01/25/2024 9:30 AM CDT) TYPE 16 Negative Negative 01/29/2024 4:31 PM CDT [facility] TRAL LABORATORY TYPE 18 Negative Negative 01/29/2024 4:31 PM CDT [facility] TRAL LABORATORY OTHER HIGH RISK TYPES Negative Negative 01/29/2024 4:31 PM CDT [facility] TRAL LABORATORY Other (Cervical/Vagina l) 01/25/2024 9:30 AM CDT 01/28/2024 9:04 AM CDT Narrative [facility] - 01/29/2024 4:31 PM CDT HPV types 16, 18, 31, 33, 35, 39, 45, 51, 52, 56, 58, 59, 66 and 68 DNA were undetectable or below the pre-set threshold. Methodology: Polina Marti 4800 HPV Test Jacob Lisa MD MICROBIOLOGY Performing Organization Address City/[facility]/ZIP Co de Phone Number [facility] [address] [place] [phone], from Last 3 Months or Most Recently Relevant to Health Maintenance Care Teams Grain Handler Relationship Specialty Start Date End Date Clinic, No Pcp Or . PCP - General 05/19/15
== END 2024-05-20 13:35 | disposition home or self-care (01) ==
LOC: NFLDREF 13:36
PROVIDERS: PCP Family Medicine; Visit Provider Obstetrics & Gynecology
DX: N92.0 Excessive and frequent menstruation with regular cycle (principal)
CPT/HCPCS: 85240; 85245; 85246

== ENCOUNTER 2024-06-03 13:30 | Outpatient (RCR) | payer BC, SELFPAY ==
--- NOTE | 2024-02-05 14:04 | URNOTE ---
?Request received for authorization for?Ferric Carboxymaltose?([id number]). Prior authorization is not required per BCBS of [place] active coverage, Rep. Libby Dent Ref#[id number].
[2024-02-13 09:13] VITALS: BP 118/79; PULSE 99; RESP 16; TEMP 36; O2SAT 98
[2024-02-13] MEDS: SODIUM CHLORIDE 0.9 % (FLUSH) 10 ML SYRINGE IVF (09:33)
[2024-02-13] MEDS: FERRIC CARBOXYMALTOSE 750 MG in 0.9 % SODIUM CHLORIDE 250 ml 250 ML 1060 MG IVPB (09:44)
[2024-02-13 10:15] VITALS: BP 111/76; PULSE 94; RESP 16; TEMP 36.4; O2SAT 97
[2024-02-13 10:48] VITALS: BP 113/78; PULSE 93; RESP 16; TEMP 36.5; O2SAT 97
[2024-02-20 09:13] VITALS: BP 119/83; PULSE 95; RESP 16; TEMP 36.6; O2SAT 98
[2024-02-20] MEDS: FERRIC CARBOXYMALTOSE 750 MG in 0.9 % SODIUM CHLORIDE 250 ml 250 ML 800 MG IVPB (09:31)
[2024-02-20 09:59] VITALS: BP 133/82; PULSE 94; RESP 16; TEMP 36.3; O2SAT 97
[2024-02-20 10:25] VITALS: BP 118/80; PULSE 97; RESP 16; TEMP 36.1; O2SAT 98
--- NOTE | 2024-05-26 13:33 | URNOTE ---
?Request received for authorization for?Ferric Carboxymaltose?(Injectafer) ([id number]). Prior authorization is not required per [employer] [place] active coverage, Rep. Fredi Ramirez Ref#[id number].
[2024-05-27 13:07] VITALS: BP 135/79; PULSE 110; RESP 18; TEMP 36.4; O2SAT 98
[2024-05-27] MEDS: SODIUM CHLORIDE 0.9 % (FLUSH) 10 ML SYRINGE IVF (13:30)
[2024-05-27] MEDS: FERRIC CARBOXYMALTOSE 750 MG in 0.9 % SODIUM CHLORIDE 250 ml 250 ML 1060 MG IVPB (13:46)
[2024-06-03 13:24] VITALS: BP 132/92; PULSE 104; RESP 16; TEMP 36.5; O2SAT 98
[2024-06-03] MEDS: FERRIC CARBOXYMALTOSE 750 MG in 0.9 % SODIUM CHLORIDE 250 ml 250 ML 1060 MG IVPB (13:37)
[2024-06-03 13:56] VITALS: BP 115/75; PULSE 105; RESP 18; TEMP 36.4; O2SAT 98
[2024-06-03 14:30] VITALS: BP 128/86; PULSE 106; RESP 16; TEMP 36.2; O2SAT 98
== END 2024-08-11 23:59 | disposition home or self-care (01) ==
LOC: CCIC 13:30
PROVIDERS: PCP Family Medicine; Referring Provider Family Medicine; Visit Provider Family Medicine
DX: D50.9 Iron deficiency anemia, unspecified (principal)
CPT/HCPCS: 96365; 96374; J1439; J7030; J7050

== ENCOUNTER 2024-07-18 12:21 | Outpatient (CLI) | payer BC, SELFPAY ==
--- OUTSIDE RECORDS SUMMARY | 2024-07-18 12:23 | XMS_ITS | Clinical Summary ---
Author Organization [employer] [facility] Address [place], [place] [address] Care Team Providers Care Metal Fabricating Supervisor Name Role Phone Clinic, No Pcp Or Primary Care Provider Unavaila ble Allergies No known active allergies Medications No known medications Active Problems No known active problems Social History Tobacco Use Types Packs/Day Years [...] 2003 Tetanus booster 2005 COVID-19 vaccine series (2023- season) 2024 Influenza for age 9-49 06/08/2024 Pap test for age 21-65 01/24/2027 , 01/25/2024, 11/29/2016, Additional history exists Pneumococcal series for age 6-64 Aged Out No longer eligible based on patient's age to complete this topic Procedures Procedure Name Priority Date/Time Associated Diagnosis Comments HPV HIGH RISK Routine 01/25/2024 9:30 AM CDT from Last 3 Months or Most Recently Relevant to Health Maintenance Results * HPV HIGH RISK (01/25/2024 9:30 AM CDT) TYPE 16 Negative Negative 01/29/2024 4:31 PM CDT [facility] TRAL LABORATORY TYPE 18 Negative Negative 01/29/2024 4:31 PM CDT [facility] TRAL LABORATORY OTHER HIGH RISK TYPES Negative Negative 01/29/2024 4:31 PM CDT [facility] TRAL LABORATORY Other (Cervical/Vagina l) 01/25/2024 9:30 AM CDT 01/28/2024 9:04 AM CDT Narrative [facility] - 01/29/2024 4:31 PM CDT HPV types 16, 18, 31, 33, 35, 39, 45, 51, 52, 56, 58, 59, 66 and 68 DNA were undetectable or below the pre-set threshold. Methodology: Polina Marti 4800 HPV Test Jacob Lisa MD [facility]BIOLOGY [facility] [address] [place] [address], [place] from Last 3 Months or Most Recently Relevant to Health Maintenance Care Teams Metal Fabricating Supervisor Relationship Specialty Start Date End Date Clinic, No Pcp Or . PCP - General 05/19/15
== END 2024-07-18 12:22 | disposition home or self-care (01) ==
PROVIDERS: PCP Family Medicine; Visit Provider Family Medicine
DX: D50.9 Iron deficiency anemia, unspecified (principal); Z13.228 Encounter for screening for other metabolic disorders
CPT/HCPCS: 80048; 82728; 85025

== ENCOUNTER 2024-07-30 06:43 | Day surgery (SDC) | payer BC, SELFPAY ==
[2024-07-30] VITALS (36 sets, daily range): BP systolic 109–136; BP diastolic 63–78; PULSE 88–122; RESP 12–20; TEMP 36–37.4; O2SAT 90–99; BMI 38.7
--- OUTSIDE RECORDS SUMMARY | 2024-07-30 06:47 | XMS_ITS | Clinical Summary ---
Author Organization [employer] [facility] Address [place], [place] [address] Care Team Providers Care Demolition Worker Name Role Phone Clinic, No Pcp Or [...] 16 Negative Negative 01/29/2024 4:31 PM CDT [facility] TRAL LABORATORY TYPE 18 Negative Negative 01/29/2024 4:31 PM CDT [facility] TR[facility] LAB[facility]AT[facility] OTHER HIGH RISK TYPES Negative Negative 01/29/2024 4:31 PM CDT [facility] TRAL LABORATORY Other (Cervical/Vagina l) 01/25/2024 9:30 AM CDT 01/28/2024 9:04 AM CDT Narrative [facility] - 01/29/2024 4:31 PM CDT HPV types 16, 18, 31, 33, 35, 39, 45, 51, 52, 56, 58, 59, 66 and 68 DNA were undetectable or below the pre-set threshold. Methodology: Polina Marti 4800 HPV Test Jacob Lisa MD [facility]Y [facility] [address] [place] [address], [place] from Last 3 Months or Most Recently Relevant to Health Maintenance Care Teams Demolition Worker Relationship Specialty Start Date End Date Clinic, No Pcp Or . PCP - General 05/19/15
[2024-07-30 07:33] LABS: Basophils Absolute Auto 0.03 K/uL (0.00-0.30); Basophils Percent Auto 0.4 % (0.0-3.0); Eosinophils Absolute Auto 0.04 K/uL (0.00-0.50); Eosinophils Percent Auto 0.6 % (0.0-7.0); Hematocrit 43.3 % (33.0-51.0); Hemoglobin* 14.2 gm/dL (12.0-16.0); Lymphocytes Absolute Auto 1.86 K/uL (0.90-2.90); Lymphocytes Percent Auto 27.3 % (20-44); Mean Corpuscular HGB Conc 33 gm/dL (32-36); Mean Corpuscular Hemoglobin 30 pg (26-34); Mean Corpuscular Volume 90 fL (80-100); Monocytes Percent Auto 8.7 % (0.0-11.0); Neutrophils Absolute Auto 4.29 K/uL (1.7-7.0); Platelet Count* 286 K/uL (140-440); RDW Coefficient of Variation % 20.1 % (11.5-15.5); Red Blood Count 4.82 m/uL (4.00-5.20); White Blood Count* 6.81 K/uL (4.50-11.00)
[2024-07-30 07:33] LABS: Ur HCG Qualitative* Negative (Negative)
[2024-07-30 07:37] LABS: Slide Review Reflex No
[2024-07-30 08:06] LABS: Creatinine* 0.5 mg/dL (0.5-1.5); Est. Creatinine Clearance* 142.81; Estimated Glomerular Filt Rate 123 ml/min
--- NOTE | 2024-07-30 08:07 | W.ANESCHARGE ---
Anesthesia Charges Start Date/Time Anesthesia Start Date: 07/30/24 Anesthesia Start Time: 09:11 Stop Date/Time Anesthesia Stop Date: 07/30/24 Anesthesia Stop Time: 11:49
--- NOTE | 2024-07-30 08:08 | W.PM.NB ---
Nerve Block Nerve Block Time Seen by Provider: : Date Seen: 07/30/24 Type of block requested by surgeon for post-operative analgesia: TAP Side: bilateral Time out performed: Yes Verification of patient name: Yes Verification of date of : Yes Site marking: site marked Name of person performing procedure: Rik Continuous monitoring Was continuous monitoring of O2 sat, B/P, director of cardiac rehabilitation, recorded every 15 minutes?: Yes Procedure Checklist: sterile prep, needles and gloves Ultrasound guided. Images saved: Yes Medications given in 5ml increments after negative aspiration: Marcaine %: 0.25 mL: 30 Needle gauge: 20 and Exparel mL: 10 Patient tolerated procedure well: Yes Additional comments: Needle noted between internal oblique and transversus abdominus. Local spread visualized Block Charges Block Charge (with Pro Fee): TAP Bilateral Use of Ultrasound Machine for Block: Yes- US Guidance/pain block
[2024-07-30] MEDS: 0.9 % SODIUM CHLORIDE 1000 ml 1,000 ML 125 ML IV (09:11)
[2024-07-30] MEDS: CEFAZOLIN 2 GM INJ IVP (09:22)
[2024-07-30] MEDS: LIDOCAINE 1%-EPI 1:100,000 20 ML INFILTRATI (10:00)
--- NOTE | 2024-07-30 11:47 | W.ANESCHARGE ---
Anesthesia Charges Start Date/Time Anesthesia Start Date: 07/30/24 Anesthesia Start Time: 09:11 Stop Date/Time Anesthesia Stop Date: 07/30/24 Anesthesia Stop Time: 11:49
--- NOTE | 2024-07-30 11:56 | PM.GYNPRHY ---
Procedure Type of Hysterectomy: Total Laparoscopic Pre-op/Post-op diagnoses: Pre-Op/Post-Op Diagnoses Operation Date: 07/30/24 08:35 <No data on this case meets the specified criteria> Procedure: Procedures Operation Date: 07/30/24 08:35 Actual Procedure Side Surgeon p Laparoscopic Total Hysterectomy, Bilateral Salpingectomy, Cystoscopy Not Applicable Teresa Hayes MD Pattern Data Operator: Negar Marcus Estimated blood loss (mL): 50 Anesthesia Type: General Complications: none Fluids: crystalloid Fluid amount (mL): 950 Urine output (mL): 500 Weight of Uterus: 11.464 oz Specimen: uterus, left tube and right tube Disposition: same day Narrative: Findings: On exam under anesthesia: Normal appearing external genitalia. Normal appearing cervix. The uterus was large approximately 12-15 week size, mobile. Unable to assess adnexa adequately via bimanual exam due to body habitus. On laparoscopy: Large, globular, and broad appearing uterus indicative of adenomyosis, normal bilateral fallopian tubes and ovaries. Posterior cul-de-sac within normal limits. Normal appearing liver. Filmy adhesion of bowel epiploica to left pelvic sidewall. Cystoscopy: The dome of the bladder was noted to be without defect and no evidence of any sutures from the vaginal cuff causing injury. Normal urine flow was noted through both ureteral orifices. Preoperative diagnosis: Maribel is a 38-year-old 5 para 2 with severe menorrhagia causing acute blood loss anemia, dysmenorrhea likely secondary to endometriosis/adenomyosis. Postoperative diagnosis: Same Procedure: Maribel was taken to the operating room where general anesthetic was found to be adequate. She was placed in the dorsal lithotomy position and an exam under anesthesia was performed with findings stated above. She was then prepped and draped in a normal sterile manner. A Fierro catheter was placed. A bivalve speculum was placed in the vaginal canal. A long tenaculum clamp was placed on the anterior lip of the cervix, in the uterus sounded to 9 cm. A extra large size VCare uterine manipulator was then placed. The tenaculum clamp and speculum were removed from the cervix. Attention was then turned to performing the laparoscopic portion of the procedure. All incisions were infiltrated with 1% lidocaine with epinephrine prior to incising the skin. A vertical, infraumbilical 5 mm incision was made. A 5 mm trocar was then placed under direct visualization. The abdomen was then insufflated with CO2 gas to a pressure of 15 mm of mercury. Two pelvic ports were then placed approximately 3-4 finger breaths medial to the ischial crests. The trocar in the RLQ = 5mm, LLq = 11mm. A 4th port was made in the patient's right lower quadrant, just superior medial to the left ASIS. A 5 mm Fios Kii port was inserted under direct visualization and without complication. The balloon on each of the 4 ports was inflated, holding each in place. These were placed under direct visualization. Attention was then turned to performing the hysterectomy. The left fallopian tube was grasped, dissected of the left ovary and removed with sequential pedicles using the dissecting, ligasure [place] tip dissecting forceps. Fallopian tube was removed in 2 pieces due to previous transection from tubal ligation. Filmy adhesions were taken down tethering the left fallopian tube to to the pelvic side wall. The left side of the hysterectomy was performed using the ligasure dissecting forceps. The 1st pedicles were starting with the broad ligament that was cauterized and and bisected. In sequence show pedicles were formed to divide the utero-ovarian ligament. Then sequential pedicles were made through the broad ligament. The posterior leaf of the broad ligament was then divided and sequential pedicles carried down to the level of the VCare cup. The anterior leaf of the broad ligament was then divided down to the level of the anterior aspect of the VCare cup and a bladder flap created. The uterine vessels were then skeletonized. The uterine vessels were then cauterized and divided. Then excess tissue was cleared over the top of the VCare cup using the dissecting forceps. The right salpingectomy and right side of the hysterectomy were then performed in a similar manner. The [employer] pen with the spatula attachment was then used to perform the colpotomy incising around the VCare cup. The uterus was removed and the fundus placed in the vaginal canal to maintain insufflation. Patient was noted to have a small 1 cm hematoma forming on the left vaginal cuff corner. This was coagulated with the LigaSure. The vaginal cuff was then reapproximated using 2-0 V lock suture in a running manner. An extra figure of 8 with a new v-lock suture was placed at the left corner due to running out of suture. All the pedicles and vaginal cuff were then closely visualized and hemostasis obtained with bipolar cautery using the LigaSure dissecting forceps or the [employer] pen with the spatula. Excellent hemostasis noted. The the uterus was removed from the vaginal canal and sent to pathology. The Fierro catheter was briefly removed. A diagnostic cystoscopy was performed using normal saline as the insufflation medium. Findings noted from above. Fluorescein IV was given intraoperatively to visualize the urine more easily. Fierro catheter was then replaced to be retained until removal on POD#1. Attention was then returned to the abdomen where hemostasis was verified. The CO2 pressure decreased to 8mmHG and hemostasis verified. The fascia in the LLQ incision was approximated with 0-Vicryl suture using the Ren Thomasevelyn fascial closure device. This was closed under direct visualization with the laparoscope. All trocars were removed under direct visualization. CO2 gas was allowed to escape the infraumbilical port prior to its removal. All skin incisions were re-approximated using 4-0 Monocryl in a running subcuticular manner, Exophin skin adhesive gel and adhesive bandages placed. The patient tolerated this procedure well. Sponge, lap and instrument counts were correct x2 at the end of the procedure and the patient was taken to the recovery area in stable condition. The patient received 2gm IV ancef prior to the start of the procedure.
[2024-07-30] MEDS: ACETAMINOPHEN 325 MG TABLET 650 MG PO (13:58)
--- NOTE | 2024-07-30 14:15 | PC.NURSE ---
End of shift note: Patient returned from OR at 12:22. Pain is manageable with PO medications. Patient feels she has to urinate. Has a Fierro in and the Fierro is patent and draining bright yellow urine. 1000cc was emptied in PACU and 200cc emptied since returning to the floor. PIV is patent. Patient stood at bedside and sat in the chair for about 10min before returning to bed due to dizziness. Patients VS have been within normal limits. Has 3 lap sites and 1 umbilical incision. These 3 lap sites are glued and clean, dry and intact. The umbilicus site is oozing a small amount of serosanguineous drainage. There is a small skin tear under abdominal fold as well. Patient is taking PO Tylenol/ibuprofen for pain. Denies nausea at this time, but did have some nausea when she was up in chair. Has tolerated water and applesauce so far. Lung sounds clear. Bowel sounds hypoactive. SCDs on. Alert and oriented. , Willard is at bedside.
[2024-07-30] MEDS: IBUPROFEN 600 MG TABLET PO ×2 (16:36→22:21)
[2024-07-30] MEDS: OXYCODONE 5 MG TABLET PO ×2 (18:08→22:21)
[2024-07-30] MEDS: ENOXAPARIN 40 MG/0.4 ML INJ SUBCUT (21:23)
[2024-07-30] MEDS: ONDANSETRON 2 MG/ML inj 4 MG IVP (21:23)
--- NOTE | 2024-07-30 23:18 | PC.NURSE ---
End of shift [id number]: Pt has been A&O, afebrile and VSS. Lap sites x2 C/D/I and ELVIN and umbilical site has old, bloody drainage. Fierro is patent & intact. Pt describes pain as vaginal pressure, rating it at a continuous 7/10. PRN oxycodone started this evening, last given @ 2220. She was up in the chair earlier in the day and experiences some nausea/dizziness so she has been in bed the remainder of the evening. Ice pack on top of pelvis for pain relief. PIV in right hand is SL and C/D/I. Right pannus skin tear is covered with a dressing. ?
[2024-07-31 03:00] VITALS: BP 120/64; PULSE 117; RESP 16; TEMP 36.4; O2SAT 91
[2024-07-31] MEDS: IBUPROFEN 600 MG TABLET PO ×2 (03:51→09:38)
[2024-07-31] MEDS: OXYCODONE 5 MG TABLET PO ×2 (05:38→09:41)
[2024-07-31 06:36] LABS: Hemoglobin* 13.3 gm/dL (12.0-16.0)
[2024-07-31 06:52] LABS: Creatinine* 0.6 mg/dL (0.5-1.5); Est. Creatinine Clearance* 119.01; Estimated Glomerular Filt Rate 118 ml/min
--- NOTE | 2024-07-31 07:01 | PC.NURSE ---
[id number]: Pt alert, oriented and vitally stable. HR 100s-110s, pt reports her HR is typically elevated, denies chest pain/discomfort. BP WNL. No c/o dizziness with ambulation.?Pain rated 5/10 in abd, 5mg oxy given x1. Nice total output 650 mL. Removed nice around 0500, tip intact.
--- NOTE | 2024-07-31 07:53 | P.DS_ITS ---
DS: Providers Provider Time Seen by Provider: 07:30 Date Seen: 07/31/24 Primary care physician: Jacob Lisa MD Attending Physician on discharge: Teresa Hayes MD Date of Discharge: 07/31/24 DS: Diagnosis Discharge Diagnosis (1) Menorrhagia: Status: Acute (2) Iron deficiency anemia: Status: Acute Problem details: Hemoglobin 4.4, transfused 2 units. s/p IV iron infusion x 1 (3) Morbid obesity with body mass index (BMI) of 40.0 or higher: Status: Chronic (4) Generalized anxiety disorder: Status: Chronic (5) H/O hysterectomy for benign disease: Status: Acute Problem details: Total laparoscopic hysterectomy, bilateral salpingectomy for adenomyosis/endometriosis on 07/30/24 [employer]-Discharge Summary Hospital Course Hospital Course Narrative: Patient is a 38 year old admitted on 07/30/24 for scheduled total laparoscopic hysterectomy, bilateral salpingectomy, and cystoscopy. Indication for surgery: Endometriosis/adenomyosis. Intraoperative findings: On exam under anesthesia: Normal appearing external genitalia. Normal appearing cervix. The uterus was large approximately 12-15 week size, mobile. Unable to assess adnexa adequately via bimanual exam due to body habitus. On laparoscopy: Large, globular, and broad appearing uterus indicative of adenomyosis, normal bilateral fallopian tubes and ovaries. Posterior cul-de-sac within normal limits. Normal appearing liver. Filmy adhesion of bowel epiploica to left pelvic sidewall. Cystoscopy: The dome of the bladder was noted to be without defect and no evidence of any sutures from the vaginal cuff causing injury. Normal urine flow was noted through both ureteral orifices. She had an uncomplicated surgery. Postoperative course has been uneventful. Vitals have been notable for mild tachycardia in 100s bpm. She reports she feels well but fatigued. She has remained afebrile. Today, on postoperative day #1, she reports the pain is well controlled. She has been able to ambulate without difficulty. She is tolerating regular diet. She is passing flatus. Nice catheter has been removed, and she is voiding without difficulty. Time Spent with Patient Time attestation: Total time spent providing and/or coordinating discharge services: Time spent: Less than 30 minutes [employer] - Exam Physical Exam: Vital signs: Temp Pulse Resp BP Pulse Ox O2 Del Method 97.6 F 117 H 16 120/64 91 Room Air 07/31/24 03:00 07/31/24 03:00 07/31/24 03:00 07/31/24 03:00 07/31/24 03:00 07/31/24 03:00 Narrative: Physical exam: General: No acute distress Psych: Alert and oriented x4, full affect HEENT: Normocephalic, atraumatic Neck: No cervical adenopathy, no thyromegaly Heart: Regular rate and rhythm, no murmur rub or gallop Lungs: Clear to auscultation bilaterally Abdomen: Normoactive bowel sounds, soft, no tenderness, rebound, or guarding Incision: Appropriately tender to palpation. Clean, dry, and intact. No erythema, induration, or abnormal discharge/breakdown x4. 2 cm superficial cut that broke the epid ermis on the right side in the crease of her pannus. This is due to skin stretching. Bandage over the cover due to friction/moisture in place. Skin: No lesions or rashes Lower extremities: No edema or erythema. SCDs in place. Pelvic exam: Scant blood on pad. [employer] - DS: Data Data Completed and Pending Labs on day of discharge: Labs from last 24 hours 07/31/24 07/30/24 06:26 07:22 Hgb 13.3 Creatinine 0.6 0.5 Estimated Creat Clear 119.01 142.81 Estimated GFR 118 123 Blood Type A Positive Antibody Screen NEGATIVE Procedures Procedures: Procedures Operation Date: 07/30/24 08:35 Actual Procedure Side Surgeon p Laparoscopic Total Hysterectomy, Bilateral Salpingectomy, Cystoscopy Not Applicable Teresa Hayes MD Complications: none Discharge Plan Discharge Disposition: Home w/ Parent or Adult Discharging Surgeon: Teresa Hayes Follow-Up Appointment: [facility] 2023 @[address] Hayes Prescriptions: New docusate sodium 100 mg Capsule 100 mg PO BID PRN (Reason: Constipation) 30 Days Qty: 60 0RF ibuprofen 600 mg Tablet 600 mg PO Q6H PRN (Reason: pain) 30 Days Qty: 120 0RF simethicone 80 mg Tablet,Chewable 160 mg PO Q4H PRN (Reason: gas) 30 Days Qty: 60 0RF oxycodone 5 mg Tablet 5 mg PO Q6H PRN (Reason: Moderate Pain) 14 Days Qty: 20 0RF acetaminophen [Tylenol Extra Strength] 500 mg tablet 1,000 mg PO Q6H PRN30 Days Qty: 60 0RF Patient Instructions: Acetaminophen (By mouth), Ibuprofen (By mouth), Simethicone (By mouth), Laxative, Stool Softeners (By mouth) (Doculax, Colace, Colace Clear, DSS), Oxycodone, Rapid Release (By mouth), Laparoscopic Hysterectomy (DC) Additional Instructions: LAPAROSCOPY POSTOPERATIVE INSTRUCTIONS ACTIVITY No heavy lifting/pushing/pulling for 4-6 weeks. Do not lift anything more than about 15 lbs (such as laundry, groceries, children, pets), vacuum, push heavy doors or grocery carts, etc. You may climb stairs as tolerated. Do not put anything in the vagina for 6-8 weeks after surgery unless otherwise instructed by your doctor (including tampons, douching, sexual intercourse, etc). No driving for about 2 weeks after surgery, while you are taking narcotic pain medication, or until you feel that you are ready. Practice checking your blind spot and stepping hard on the brake. Avoid sitting or lying in bed for more than 2 hours at a time while you are awak e to reduce your risk of blood clots. You may return to work when directed by your physician. Please contact your doctor if you need any return to work letters or medical leave paperwork to be completed. WOUND CARE You will have 4 small incisions on your abdomen. There will be dissolvable stitches under your skin that do not need to be removed. Shower daily after surgery. Clean your incision with mild antibacterial soap and water. Pat your incision dry with a clean towel. No tub baths until wound is completely healed. Wash your hands frequently, especially before touching your incision, changing any dressings, after using the restroom, and before eating. PAIN MANAGEMENT Take your oral pain medication as needed. You should be taking Ibuprofen 600mg every 6 hours with 1000 mg of Tylenol every 6 hours. You can take these together every six hours or alternate them every 3 hours. You should then take the oxycodone as needed if you have breakthrough pain on top of the Tylenol and Ibuprofen. Some pain medications can cause constipation so you should take a stool softener (i.e. colace/senna) while you are on these medications. You may also take milk of magnesia or Miralax for constipation. WHAT TO EXPECT AT HOME Recovery from surgery is generally 2-4 weeks, but sometimes longer for more strenuous activity. It is normal to be very tired during this time. It is normal to have some drainage or a small amount of vaginal bleeding after surgery which may last up to 6 weeks. You may go home with a nice catheter in your bladder. If so, you will need to follow up for a nurse visit in 7-10 days for removal. You will most likely experience gas pain, abdominal swelling, or shoulder pain for 24-72 hours after surgery. This is from the carbon dioxide gas put into your abdomen to better visualize your organs. A warm shower, heating pad, and/or walking may help. WHEN TO CALL YOUR DOCTOR : Fever (>100.4?F or 38.0?C) or chills. Incision problems such as redness, warmth, swelling, or foul-smelling drainage. Severe nausea or persistent vomiting. Bright red vaginal bleeding (soaking >1 pad/hour) or foul-smelling vaginal drainage. Severe pain not relieved with pain medication. Pain and swelling in your legs, especially if it is only on one side and not the other. Pain with urination, cloudy urine, or foul-smelling urine. Or if you have any other problems or questions. CALL 911 OR GO TO THE EMERGENCY ROOM IF YOU HAVE: Any shortness of breath, difficulty breathing, or chest pain. Follow-up: Jacob Lisa MD [Primary Care Provider] - Discharge Orders: Discharge Order (Routine); Ordered 07/31/24 Ordered By: Teresa Hayes
[2024-07-31] MEDS: ACETAMINOPHEN 325 MG TABLET 650 MG PO (08:07)
[2024-07-31 08:10] VITALS: BP 128/83; PULSE 104; RESP 24; TEMP 37.7; O2SAT 93
--- NOTE | 2024-07-31 09:57 | PC.NURSE ---
Discharge: Patient pleasant and cooperative. Patient vitally stable, slight rldyp=677, lungs clear, BS WNL, IV removed, catheter intact. Patient rates pain 5-6/10, tylenol, ibuprofen, oxycodone given once, active ice also used. Abdominal lap sites x4 plus laceration C/D/I. New dressing placed on abdominal laceration. Patient urinated 400cc and tolerating regular diet, patient was a little nauseous when she first got to chair but later resolved. Patient signed belongings sheet and discharge form, patient had no further questions. Patient left the floor to home by wheelchair at 0950.
== END 2024-07-31 09:50 | disposition home or self-care (01) ==
LOC: OR 06:45 → MEDSURG 06:49
PROVIDERS: PCP Family Medicine; Visit Provider Obstetrics & Gynecology
PROC: 0UT94ZZ Resection of Uterus, Percutaneous Endoscopic Approach (ICD-10-PCS; CPT 58573; principal; 2024-07-30 08:15)
DX: N92.0 Excessive and frequent menstruation with regular cycle (principal); N94.6 Dysmenorrhea, unspecified; N73.6 Female pelvic peritoneal adhesions (postinfective); N80.03 Adenomyosis of the uterus; N80.9 Endometriosis, unspecified; N72 Inflammatory disease of cervix uteri; G89.18 Other acute postprocedural pain; D50.0 Iron deficiency anemia secondary to blood loss (chronic); E66.01 Morbid (severe) obesity due to excess calories; Z68.41 Body mass index [BMI] 40.0-44.9, adult; F41.1 Generalized anxiety disorder; R00.0 Tachycardia, unspecified; R53.83 Other fatigue
CPT/HCPCS: 58573; 00840; 36415; 64488; 76942; 81025; 82565; 85018; 85025; 86850; 86900; 86901; 88307; A9270; C9290; J0330; J0665; J0690; J1100; J1171; J1650; J1885; J2250; J2371; J2405; J2704; J3010; J3475; J3490; J7030

== ENCOUNTER 2024-08-15 10:05 | Outpatient (CLI) | payer BC, SELFPAY ==
--- OUTSIDE RECORDS SUMMARY | 2024-08-16 14:38 | XMS_ITS | Clinical Summary ---
Author Organization [facility] Address [place], [place] [address] Care Team Providers Care Bill Clerk Name Role Phone Clinic, No Pcp Or Primary Care Provider Unavaila ble Allergies No known active allergies Medications No known medications Active Problems No known active problems Encounters Date Type Department Care Team Description 07/30/2024 Lab Requisition [facility] [phone] Teresa Hayes MD from Last 3 Months [...] Associated Diagnosis Comments LAB TRACKING EVENT Routine 07/30/2024 12 :00 PM CDT PATH TISSUE EXAM Routine 07/30/2024 10:3 4 AM CDT HPV HIGH RISK Routine 01/25/2024 9:30 AM CDT from Last 3 Months or Most Recently Relevant to Health Maintenance Results * LAB TRACKING EVENT (07/30/2024 12:00 PM CDT) Other (Other) Client Collect / Unknown 07/30/2024 12:00 PM CDT 07/30/2024 10:06 PM CDT Teresa Hayes MD LAB BILL ONLY [facility] [address] [place] [address], * PATH TISSUE EXAM (07/30/2024 10:34 AM CDT) Case Report Pathology Report ?Case: [id number] ? Authorizing Provider: ??Freddy, Teresa Thomson, ?Collected: ? 07/30/2024 1034 ? Ordering Location: ? [facility] ?Received: ?07/31/2024 0808 ? Pathologist: ? Anup Locke MD ? Specimen: ?Uterus ? 08/04/2024 12:45 PM [facility] Final Diagnosis A) UTERUS WITH CERVIX AND BILATERAL FALLOPIAN TUBES, TOTAL HYSTERECTOMY WITH BILATERAL SALPINGECTOMY: 1. Cervix: ?? a. Endocervix and ectocervix ?? b. Chronic cervicitis ?? c. Negative for glandular neoplasia and squamous intraepithelial lesion 2. Endometrium: ?? a. Proliferative endometrium ?? b. Negative for hyperplasia and atypia 3. Myometrium: No significant histologic abnormality 4. Uterine serosa: No significant histologic abnormality 5. Fallopian tubes: ?? a. No diagnostic abnormality ?? b. Negative for malignancy 6. Uterine weight: 306 grams 08/04/2024 12:45 PM [facility] Clinical Information menorrhagia 08/04/2024 12:45 PM [facility] [employer] [facility] Gross Description A) Received in formalin, labeled with the patient's name and uterus, bilateral fallopian tubes, is a 306 g, 11.0 x 8.3 x 6.5 cm uterus and cervix with unattached bilateral fallopian tubes. ??The serosa is smooth pink-pinto. ??The ectocervix is 4.0 x 2.8 cm with smooth pink-pinto ectocervical mucosa and a 1.8 cm slitlike os. ??The anterior cervix is partially disrupted with sloughing mucosa consistent with surgical defect. ??The endocervical canal is pink-pinto and unremarkable. ??The endometrial cavity is 7.5 x 6.0 cm with sloughing red-pinto endometrium. ??The cut surface reveals an endometrial thickness of 0.1 cm. ??The myometrium is diffusely trabeculated pink-pinto and averages 3.0 cm in thickness. ??No nodules or lesions are identified. The fallopian tubes are unoriented and average 5.0 x 0.7 cm. ??The outer surfaces are smooth purple-red and fimbriated. ??The cut surfaces reveal patent stellate lumens. ?? Instrument Operator sections are submitted: 1. ??Anterior cervix 2. ??Posterior cervix 3. ??Anterior full-thickness endomyometrium 4. ??Posterior full-thickness endomyometrium bisected 5-6. ??1 fallopian tube to include fimbria entirely 7-8. ??Second fallopian tube to include fimbria entirely [facility] 07/31/2024 08/04/2024 12:45 PM CDT [facility] [employer] [facility] Microscopic Description The final diagnosis is based on microscopic examination of appropriate sections of all specimens. 08/04/2024 12:45 PM CDT [facility] [employer] [facility] Additional Information Interpreted at [facility] - [address] [facility] [address], [place] [address] 08/04/2024 12:45 PM CDT [facility] Other SPECIMEN FROM UTERUS / Unknown 07/30/2024 10:34 AM CDT 07/31/2024 8:08 AM CDT Teresa Alix Hayes MD PATHOLOGY/CYTOLOGY [facility] [address] [place] [address], * HPV HIGH RISK (01/25/2024 9:30 AM CDT) TYPE 16 Negative Negative 01/29/2024 4:31 PM CDT [facility] TYPE 18 Negative Negative 01/29/2024 4:31 PM CDT [facility] OTHER HIGH RISK TYPES Negative Negative 01/29/2024 4:31 PM CDT [facility] Other (Cervical/Vagina l) 01/25/2024 9:30 AM CDT 01/28/2024 9:04 AM CDT Narrative [facility] - 01/29/2024 4:31 PM CDT HPV types 16, 18, 31, 33, 35, 39, 45, 51, 52, 56, 58, 59, 66 and 68 DNA were undetectable or below the pre-set threshold. Methodology: [employer] 4800 HPV Test Jacob Lisa MD MICROBIOLOGY [facility] [address] [place] [address], [place] from Last 3 Months or Most Recently Relevant to Health Maintenance Care Teams Bill Clerk Relationship Specialty Start Date End Date Clinic, No Pcp Or . PCP - General 05/19/15
== END 2024-08-15 10:06 | disposition home or self-care (01) ==
LOC: NFLDREF 08-16 14:36
PROVIDERS: PCP Family Medicine; Referring Provider Family Medicine; Visit Provider Obstetrics & Gynecology
DX: L03.90 Cellulitis, unspecified (principal); Z48.89 Encounter for other specified surgical aftercare; T81.49XA Infection following a procedure, other surgical site, initial encounter
CPT/HCPCS: 87070